=== PATIENT | male | born 1945 | race Caucasian/White ===

== ENCOUNTER → 2024-01-02 07:41 | Outpatient (REF) | payer MEDICARE, OTHER, SELFPAY | LOC: EMG 07:41 | PROVIDERS: ATTENDING PHYSICIAN Internal Medicine | DX: R20.0 Anesthesia of skin (principal) | CPT/HCPCS: 95886; 95911 ==

== ENCOUNTER → 2024-01-07 08:46 | Outpatient (REF) | payer MEDICARE, OTHER, SELFPAY | LOC: PAVMRI 08:46 | PROVIDERS: ATTENDING PHYSICIAN Internal Medicine; OTHER PHYSICIAN Psychiatry & Neurology Neurology | DX: G25.81 Restless legs syndrome (principal); R20.0 Anesthesia of skin | CPT/HCPCS: 72148 ==

== ENCOUNTER 2024-02-07 02:11 | Observation (INO) | payer MEDICARE, OTHER, SELFPAY ==
[2024-02-06 22:52] VITALS: BP 147/78
[2024-02-06 22:58] VITALS: BMI 27.1
[2024-02-06 23:00] VITALS: BP 129/71
[2024-02-06 23:02] LABS: % Basophils 0.8 % (0-2); % Eosinophils 3.1 % (0-6); % Immature Granulocytes 0.2 % (0-0.5); % Lymphocytes 17.3 % (20.5-51.1); % Monocytes 8.9 % (1.7-9.3); % Neutrophils 69.7 % (42.2-75.2); Absolute Basophils 0.1 10^3/uL (0-0.2); Absolute Eosinophils 0.2 10^3/uL (0-0.7); Absolute Lymphocytes 1.1 10^3/uL (1.2-3.4); Absolute Monocytes 0.6 10^3/uL (0.1-0.6); Absolute Neutrophils 4.6 10^3/uL (1.4-6.5); Hematocrit 34.7 % (39.0-52.0); Hemoglobin 12.4 g/dL (13.0-18.0); Mean Corp Hgb Conc. 35.7 g/dL (33.0-37.0); Mean Corpuscular Hgb 30.5 pg (27.0-31.0); Mean Corpuscular Volume 85.3 fL (80.0-94.0); Mean Platelet Volume 10.3 fL (7.4-10.4); Nucleated Red Blood Cells % 0 % (-); Platelet Count 142 10^3/uL (130-400); Red Blood Cell Count 4.07 10^6/uL (4.70-6.10); Red Cell Dist. Width 13.1 % (11.5-14.5); White Blood Cell Count 6.6 10^3/uL (4.8-10.8)
[2024-02-06 23:14] LABS: INR 1.09; PT 14.2 Sec (11.4-14.6)
[2024-02-06 23:18] LABS: ALT (SGPT) 41 U/L (0-50); AST (SGOT) 40 U/L (17-59); Albumin 3.8 g/dl (3.5-5.0); Alkaline Phosphatase 80 U/L (38-126); Blood Urea Nitrogen 33 mg/dl (9-20); Calcium 9.4 mg/dl (8.4-10.2); Carbon Dioxide 23 mmol/L (22-30); Chloride 108 mmol/L (98-107); Estimated Creatinine Clearance 54 ml/min; Glucose 122 mg/dl (70-99); Sodium 141 mmol/L (135-145); Total Bilirubin 0.6 mg/dl (0.2-1.3); Total Protein 5.8 g/dl (6.3-8.2); eGFR 56.23
[2024-02-06 23:30] VITALS: BP 129/69
[2024-02-06 23:31] LABS: Troponin I < 0.012 ng/ml
[2024-02-07] VITALS (12 sets, daily range): BP systolic 124–157; BP diastolic 64–84; BMI 26.4; BMI 26.0
--- NOTE | 2024-02-07 00:16 | ED.GENMED ---
History of Present Illness
General
Chief Complaint: Chest Pain
Time Seen by Provider: 02/06/24 23:31
History of Present Illness
History of Present Illness:
Patient is a 70-year-old male with history of CAD with multiple stents and bypasses presenting to the emergency department chest pain. Patient states that he gets chest pain frequently. This episode started at 8:30 PM. It is left-sided that
radiates up neck and down his arm. He was having some shortness of breath. It does feel similar to when he needed his prior stents. He denies any nausea or vomiting. No diaphoresis. He did take 4 baby aspirin as well as 2 nitroglycerin without
relief. No leg swelling hemoptysis travel malignancy. No history of blood clots. He is compliant with all his medications. No numbness tingling
Past History
Past History
ED Past Medical History: CAD, GERD, HTN, Hypercholesterolemia, [place], Psychiatric and Other (Cellulitis)
ED Past Surgical History: Cardiac (Stents X 3, Coronary artery bypass) and Orthopedic
Social History
Tobacco: Former smoker
Alcohol: Occasional
Drug: None
Personal:
Living: with family
Employment: Employed
Family History
Family History: Early CAD
Phy Exam
Physical Exam
Physical Exam:
GENERAL: in no acute distress
HEENT: normocephalic, extraocular movements intact, moist oral mucosa
NECK: normal inspection
RESPIRATORY: no respiratory distress, clear to auscultation bilaterally
CARDIOVASCULAR: regular rate and rhythm, 2+ radial pulses bilaterally
ABDOMEN/: soft, non-distended, non-tender to palpation, no rebound or guarding
EXTREMITIES: non-tender, no edema/swelling
NEUROLOGIC: awake and alert, moves all extremities
SKIN: warm
Scores
Heart Score for Chest Pain Patients
STEMI patient?: No
History: Moderately Suspicious
ECG: Nonspecific Repolarization
Age: >/= 65 years
Risk Factors: >/= 3 Risk Factors or History of CAD
Troponin: </= Normal Limit
Heart Score for Chest Pain Patients: 6
Heart Score Risk: 20.3% MACE over next 6 weeks
Course
Orders/Labs/Results
Orders:
Orders
02/06/24 22:48
EKG [Electrocardiogram (*1)] Urgent
Reason for Study: Chest Pain
EKG- Treatment ONCE
02/06/24 22:55
Complete Blood Count/With Diff Urgent
Comprehensive Metabolic Panel Urgent
Prothrombin Time Urgent
Troponin I Urgent
02/07/24 00:04
CR Chest - 2 Views Urgent
Comment:
Reason For Exam: chest pain
Abnormal Lab Results
02/06/24
22:55
RBC 4.07 L 10^6/uL
(4.70-6.10)
Hgb 12.4 L g/dL
(13.0-18.0)
Hct 34.7 L %
(39.0-52.0)
Absolute Lymphs (auto) 1.1 L 10^3/uL
(1.2-3.4)
Lymphocytes % 17.3 L %
(20.5-51.1)
Chloride 108 H mmol/L
(98-107)
BUN 33 H mg/dl
(9-20)
Glucose 122 H mg/dl
(70-99)
Total Protein 5.8 L g/dl
(6.3-8.2)
02/06/24 22:55
02/06/24 22:55
Vital Signs
Initial and Last Documented VS:
Initial Vital Signs
Temp Pulse Resp BP Pulse Ox
97.7 F 56 18 147/78 97
02/06/24 22:52 02/06/24 22:52 02/06/24 22:52 02/06/24 22:52 02/06/24 22:52
Last Documented Vital Signs
Temp Pulse Resp BP Pulse Ox
97.7 F 54 18 124/64 98
02/06/24 22:52 02/07/24 00:00 02/06/24 22:52 02/07/24 00:00 02/07/24 00:00
MDM/Problems Addressed
Differential Diagnosis Includes:
Patient is a 70-year-old man with history of CAD with multiple stents and bypasses presenting to the emergency department with left-sided chest pain that radiates up to his back and down his arm for the past 4 hours. Vitals here are unremarkable
and exam is reassuring. Initial EKG per my interpretation normal sinus rhythm without any ST elevations. Concern for ACS. History and exam not consistent with PE or dissection. Initial blood work was unremarkable. Delta troponin pending. Will
also obtain chest x-ray. Discussed with hospitalist who the patient to their service. He is followed by [facility].
*Critical Care Note
Total Time (30-74mins, 75-104mins- exclusive of procedures): Not Applicable
ED Attending Note
-
Portions of this chart may have been created with voice recognition software.� Occasional wrong word or��sound alike� substitutions may have occurred due to the inherent limitations of voice recognition software.
Discharge Plan
Departure
Patient Disposition: Admit
Date of Disposition: 02/07/24
Time of Disposition: 00:15
Presentation/result/management discussed w/ accepting MD/DO: Hospitalist
Discharge Problem:
Chest pain
Prescriptions:
No Action
rosuvastatin 20 MG tablet
40 mg PO QPM
ezetimibe [Zetia] 10 MG tablet
10 mg PO QPM
aspirin [Jonathan Chewable Aspirin] 81 MG tablet,chewable
81 mg PO QPM
docosahexaenoic acid-epa 1 CAP capsule
1 cap PO BID
Co Q-10 300 MG capsule
300 mg PO DAILY
carvedilol [Coreg] 3.125 MG tablet
3.125 mg PO BID Qty: 60 0RF
furosemide 20 MG tablet
20 mg PO DAILY Qty: 30 11RF
pramipexole [Mirapex] 1 mg Tablet
1 mg PO TIDPRN PRN (Reason: restless leg)
clopidogrel [Plavix] 75 mg Tablet
75 mg PO QPM
terazosin 1 mg Capsule
1 mg PO HS
pantoprazole 40 mg Tablet,Delayed Release (Dr/Ec)
40 mg PO DAILY
oxybutynin chloride 5 mg tablet
5 mg PO BID
valsartan 160 mg tablet
160 mg PO QPM
Centrum Silver Tablet
1 tab PO DAILY
bupropion HCl 150 mg tablet extended release 24 hr
150 mg PO DAILY
Referrals:
Hipolito Salguero MD [Family Provider] -
Interventions
Interventions:
*Risk Screen - Suicide Last Done: 02/06/24 23:00
*General Assessment Last Done: 02/06/24 23:00
*Neglect/Abuse Screening Last Done: 02/06/24 23:00
Discharge Date and Time
Print Language: TAIWANESE
--- NOTE | 2024-02-07 01:30 | HPS.HSE ---
Family Physician
-
Family Physician: Hipolito Salguero
Chief Complaint
-
Persistent left-sided chest pain and some shortness of breath
History of Present Illness
This is a 72-year-old who has a history of CAD with multiple procedures in the past who presents to the emergency department with persistent left-sided sharp and achy chest pain.
Patient's CAD history is extensive with first CA in 1995 requiring stent placement. Then in 2009 he had a CABG x 3 vessels, ED then had another stent placed and his last stent was placed in 2019. He states has had intermittent episodes of chest
pain since then but not insignificant requiring even ED visits. He reported that the last week he was helping to build a roof and was carrying loads up and down ladders. He reported intermittent episodes of left pain at that time as well as
intermittent episodes of neck pain which he attributed to his physical activity. Today patient woke feeling weaker than usual. He did go to his early appointment and after returning felt better. Then at around 9 PM he had occurrence of left sided
chest pain. No particular exacerbating or relieving factors. He denied any radiation. There was an associated shortness of breath but no nausea or vomiting. No diaphoresis. He denied having any palpitations lightheadedness or dizziness. He did
not feel quite himself so he decided come to the emergency department. Since 9 the pain has been persistent.
On arrival in the ED he was afebrile and hemodynamically stable. Pulse was 51. Saturation was normal on room air. ECG showed sinus bradycardia at 56 4 degree AV block and a Q13 which is unchanged from prior. His initial troponin was negative.
CBC was unremarkable. Chemistries were unremarkable. Chest x-ray shows no acute infiltrates. Patient given any nitroglycerin and aspirin in the ED without any changes in his pain.
Medical History
Past Medical History
Past Medical History: Reports CAD, HTN and Hypercholesterolemia
Additional Past Medical History:
BPH
Past Surgical History: Reports Cardiac (CABG)
Social History
Tobacco: Former Smoker
Alcohol: Occasional
Drug: None
Personal:
Living: With Family
Employment: Retired
Family History
Family History: Not pertinent
Allergies / Home Medications
Allergies reflects when Allergies were last updated in [facility].
Home Medications with original date entered in [facility]
Allergy/Medication List:
Allergies
Allergy/AdvReac Type Severity Reaction Status Date / Time
No Known Allergies Allergy Verified 02/06/24 22:51
Home Medications
rosuvastatin 20 mg tablet 40 mg PO QPM High cholesterol 12/18/10
ezetimibe 10 mg tablet (Zetia) 10 mg PO QPM High cholesterol 01/10/17
aspirin 81 mg chewable tablet (Jonathan Chewable Low Dose Aspirin) 81 mg PO QPM Blood clot prevention/tx 06/26/17
coenzyme Q10 300 mg capsule (Co Q-10) 300 mg PO DAILY Supplement 06/26/17
docosahexaenoic acid (dha)-epa 120 mg-180 mg capsule 1 cap PO BID Supplement 06/26/17
carvedilol 3.125 mg tablet (Coreg) 3.125 mg PO BID #60 tabs 06/28/18
furosemide 20 mg tablet 20 mg PO DAILY Heart Failure #30 tabs 02/24/20
bupropion HCl 150 mg 24 hr tablet, extended release 150 mg PO DAILY 02/06/24
clopidogrel 75 mg tablet (Plavix) 75 mg PO QPM 02/06/24
kijxpuayjbxd-kcxivszp-vrmyva tablet 1 tab PO DAILY 02/06/24
oxybutynin chloride 5 mg tablet 5 mg PO BID 02/06/24
pantoprazole 40 mg tablet,delayed release 40 mg PO DAILY 02/06/24
pramipexole 1 mg tablet 1 mg PO TIDPRN PRN restless leg 02/06/24
terazosin 1 mg capsule 1 mg PO HS 02/06/24
valsartan 160 mg tablet 160 mg PO QPM 02/06/24
Review of Systems
-
History Source: Patient
Constitutional: Reports No Symptoms
EENT: Reports No Symptoms
Respiratory: Reports No Symptoms
Cardiac: Reports Chest Pain
Abdomen/GI: Reports No Symptoms
: Reports No Symptoms
Musculoskeletal: Reports No Symptoms
Skin: Reports No Symptoms
Neurological: Reports No Symptoms
Endocrine: Reports No Symptoms
Hematologic/Lymphatic: Reports No Symptoms
Psych: Reports No Symptoms
Physical Exam
Vital Signs
Vital Signs
Temp Pulse Resp BP Pulse Ox
97.7 F 51 16 131/70 93
02/06/24 22:52 02/07/24 01:00 02/07/24 01:00 02/07/24 01:00 02/07/24 01:00
Physical Exam
General: Well Developed, Well Nourished and Comfortable
HEENT: NormoCephalic, Anicteric, Moist mucous membranes and Atraumatic
Respiratory: Clear and Other (chest pain reproducible with palpation over the left edge of the sternum )
Cardiac: S1/S2 and Bradycardia
Breast: Deferred by me
GI: Soft, Non Tender, Non Distended and Normal Bowel Sounds
Rectal: Deferred by Provider
Genito-urinary: Deferred by me
Musculoskeletal: No Clubbing, No Cyanosis, Edema, Left Lower Extremity (trace) and Edema, Right Lower Extremity (trace)
Skin: Warm
Neuro: AO x 3
Hematologic/Lymphatic: No Lymphadenopathy
Psych: Calm
Laboratory Results
-
02/06/24 22:55
02/06/24 22:55
Laboratory Results
PT 14.2 Sec (11.4-14.6) 02/06/24 22:55
INR 1.09 02/06/24 22:55
Total Bilirubin 0.6 mg/dl (0.2-1.3) 02/06/24 22:55
AST 40 U/L (17-59) 02/06/24 22:55
ALT 41 U/L (0-50) 02/06/24 22:55
Alkaline Phosphatase 80 U/L (38-126) 02/06/24 22:55
Troponin I < 0.012 ng/ml 02/06/24 22:55
Data Reviewed
-
Diagnostic Radiology: Image Personally Visualized and interpreted
Medical Tests (Nuc Med, Echo, EKG etc): Image Personally Visualized and interpreted
Lab Data: Labs Reviewed by me
Old Records: Reviewed
Impression/Plan
-
IMPRESSION:
This is 78-year-old with extensive coronary artery disease status post CABG and multiple PCI's with last PCI in 2019 currently on aspirin and Plavix presenting to the ED with persistent left-sided chest pain.
PLAN:
Chest pain -somewhat atypical chest pain that is reproducible with palpation over the left sternal however there is associated shortness of breath. His initial ECG was nonischemic. Initial troponin was negative. These labs are unremarkable.
Chest x-ray was clear. Received nitroglycerin and aspirin in the ED without any significant changes in pain. History of GERD and denies nausea vomiting.
- admit to telemetry
- cycle cardiac enzymes
- if repeat cardiac enzyme is negative and chest pain still present, will give analgesics and famotidine.
- continue aspirin, plavix statin
- if cp is persistent despite analgesics and negative troponin consult cardiology
HTN - stable
- continue carvedilol and valsartan
- furosemide 20 daily
DVT PPX - lovenox sq
Code status - full code
[2024-02-07 02:26] LABS: Troponin I < 0.012 ng/ml
[2024-02-07] MEDS: PEPCID 20 MG IV (03:26)
[2024-02-07] MEDS: MAALOX 30 ML PO (03:28)
--- NOTE | 2024-02-07 03:57 | PTCARENOTE ---
Received pt from ED via stretcher. Pt ambulated to bed without assist, AAOx3, VSS, pain has decreased in severity (now rated 3/10). Oriented to floor, call levy within reach
[2024-02-07 06:11] LABS: Troponin I < 0.012 ng/ml
[2024-02-07] MEDS: WELLBUTRIN XL (24 hour extended release) 150 MG PO (08:53)
[2024-02-07] MEDS: COREG 3.125 MG PO ×2 (08:53→21:45)
[2024-02-07] MEDS: DITROPAN 5 MG PO ×2 (08:53→21:45)
[2024-02-07] MEDS: PROTONIX 40 MG PO (08:53)
[2024-02-07] MEDS: LASIX 20 MG PO (08:53)
--- NOTE | 2024-02-07 08:59 | W.PN.HOSP.TC ---
Addendum entered and electronically signed by Brent Swift MD 02/07/24 10:26:
I saw and evaluated the patient. I reviewed the resident�s note and agree with findings and plan as documented in the resident�s note.
Denies chest pain at rest. Reports chest pain throughout his chest with movement. States it feels like 'it is in my ribs.' Also reports that in certain positions he feels short of breath.
Gen: NAD, AAOx3.
Eyes: EOMI, PERRLA, no scleral icterus.
Neck: supple.
CV: RRR, +S1/S2, no m/r/g.
Resp: CTAB, no rales, wheezes, or rhonchi.
Abd: +BS, soft, NT, ND
Skin: No rashes.
MSK: Chest pain is reproducible when pressure is applied to the left chest, most notably in the lower lateral left chest.
Neuro: CN 2-12 intact, non-focal.
Psych: Normal mood and affect.
Chest pain:
-Patient with underlying CAD (coronary stents and CABG)
-trops NEG
-telemetry (reviewed by me) without concerning rhythms, currently SB at rest
-non-ischemic ECG
-Physical exam consistent with noncardiac/musculoskeletal chest pain. That being said, with underlying coronary artery disease and admission for chest pain cardiology will need to see in consultation.
Original Note:
Today's Communication/Plan
-
anticipate discharge home today if ambulating halls well without chest pain and no oxygen requirement
Assessment / Plan
Assessment / Plan
72yo M with PMH CAD s/p multiple cardiac catheterizations/stents, who presented to ED 02/05 for chest pain, pressure, shortness of breath.
Atypical chest pain vs noncardiac chest pain
CAD s/p multiple cardiac catheterizations/stents
- EKG stable, no acute infarct or ischemia. Troponin negative x3
- Pain unrelieved by nitroglycerine, rest
- Pain reproducible on physical exam, tender to palpation
- Pain/pressure resolving though still present slightly
- Suspect noncardiac chest pain, likely musculoskeletal pain triggered by active lifestyle including building roof last week and carrying tables up/down stairs few days ago
- Will consult cardiology for evaluation
- Continue home plavix, aspirin
- Telemetry while inpatient
HTN
- Continue home carvedilol, valsartan, furosemide
- Continue to monitor vital signs, reassess antihypertensives prn
Sinus bradycardia
1st degree AV block
- Asymptomatic
- Continue to monitor clinically
- Telemetry while inpatient
HLD- continue home ezetimibe, rosuvastatin
Depression- stable, continue home bupropion
RLS- continue home pramipexole
GERD- continue home pantoprazole
Code status: full
VTE ppx: lovenox sc pm
Diet: cholesterol lowering
Dispo planning: anticipate home
Anticipated Discharge: Today
Subjective/Interval History
-
Date of Service: February 07, 2024
No acute events overnight. Prior to admission while watching TV at home, he felt chest pressure and shortness of breath, which did not resolve with rest, 2 nitroglycerine and aspirin. It was associated with exhaustion, neck pain, L arm pain. Prior
to admission his chest was nontender, which he checks given his active lifestyle and his suspicion for MSK pain. This morning his chest pain is 'much less' and he 'barely feels the pressure' today. He also notes that the pain is now reproducible
when he presses in certain areas on his chest. Today he denies headache, lightheadedness, dizziness, chest pain, shortness of breath, palpitations, nausea, vomiting, diarrhea, constipation.
Objective Data
-
Labs:
Laboratory Results
02/06/24
22:55
WBC 6.6
Hgb 12.4 L
Hct 34.7 L
Plt Count 142
PT 14.2
INR 1.09
Sodium 141
Potassium 4.0
Chloride 108 H
Carbon Dioxide 23
BUN 33 H
Creatinine 1.3
Glucose 122 H
Calcium 9.4
Total Bilirubin 0.6
AST 40
ALT 41
Alkaline Phosphatase 80
Vital Signs:
Vital Signs
Temp Pulse Resp BP Pulse Ox
98.0 F 47 18 143/77 96
02/07/24 03:02 02/07/24 08:53 02/07/24 03:02 02/07/24 08:53 02/07/24 03:02
I&O
02/06/24 02/07/24 02/08/24
06:59 06:59 06:59
Intake Total 480 / 480
Balance 480 / 480
Review of Systems
-
History Source: Patient
All other systems: Reviewed and negative
Physical Exam
-
General: Well Developed, Well Nourished, No Apparent Distress, Comfortable and Conversant
HEENT: Normocephalic, Atraumatic and Hearing Impaired (hearing aids charging at bedside)
Respiratory: Clear to Auscultation and Non Labored Respirations
Cardiac: Regular Rhythm and S1/S2
GI: Soft, Nontender, Nondistended and Normal Bowel Sounds
Musculoskeletal: No Cyanosis and No Edema
Skin: Warm and Dry
Neuro: Awake, Alert, Oriented, AO x 3 and Nonfocal/Grossly Intact
Psych: Calm and Intact Judgement/Insight
Data Reviewed
-
Diagnostic Radiology: Image personally visualized and interpreted, Report Reviewed by me and Discussed with Physician
Labs: Labs Reviewed by me, Discussed with Physician and Discussed with Patient
[2024-02-07 09:05] LABS: Glycohemoglobin (HgbA1c) 5.9 % (4.0-5.6)
[2024-02-07] MEDS: MIRAPEX, GENERIC 1 MG PO ×2 (11:29→21:53)
--- NOTE | 2024-02-07 16:16 | CON.CAR ---
Addendum entered and electronically signed by Andry Piper MD 02/07/24 17:37:
Pleasant 78-year-old male with CABG x 3 in 2009, OM 3 PCI in 2010, PTCA to distal circumflex and OM 4 in 2016 with most recent PCI to OM 3 in February 2020 in the setting of interruption of DAPT for focused ultrasound ablation for essential tremor.
Admitted late February 05 with chest and neck discomfort. He has a long history of chest pain which is often noncardiac in nature. Now feels better, troponin has been negative. 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
a building last week.
PMH: As above, in addition, hypertension, hyperlipidemia, PVD, GERD, BPH, degenerative disc disease, restless legs, PAD, essential tremor
SH: Former smoker, rare alcohol, , retired but very active
FH: Noncontributory
PSH: CABG and PCI as above
ROS: Negative except as above
148/72, pulse 56, respiratory 18, afebrile, head neck exam unremarkable, lungs are clear, regular rate and rhythm without obvious murmurs JVD carotids are okay, abdomen is benign extremities without clubbing cyanosis or edema distal pulses are still
palpable, neuro nonfocal
ECG: Sinus bradycardia, first-degree AV block, prior septal infarct
Chest x-ray no active disease
Hemoglobin 12.4 platelets 142, BUN and creatinine 33 and 1.3, potassium 4, troponin is undetectable
Plan:
He presents with chest discomfort but negative troponins. It has been roughly 2 years since his last sestamibi study. Would favor continued observation today and discharge in the morning with an outpatient exercise sestamibi study.
He is mildly hypertensive but blood pressure has been good at home. For the present we will not alter his regimen. I have been considering discontinuation of carvedilol as an outpatient given bradycardia but will continue for now.
Original Note:
Consultation
Consultation Request
Date/Time Consultation Performed: 02/07/24
Requesting Provider: Dr. Swift
Performing Provider: Loyda Coyle PA-C for Dr. MIRNA Piper
Reason for Consultation: CP
Medical History
-
Chief Complaint: CP
History of Present Illness:
Patient is a 78-year-old male with past medical history of CAD status post CABG x 3 in 2009, OM 3 PCI 12/2010, POBA to dLCx/OM2016, OM3 PCI 02/2020, history of recovered ischemic cardiomyopathy, hypertension, hyperlipidemia, peripheral vascular
disease, GERD, BPH, restless leg syndrome, cervical DDD who presented to [facility] via EMS for evaluation of chest discomfort. He reports last week he was building a new roof for the front of his house. He reports around 9 PM last
evening he was watching TV and noticed significant chest discomfort throughout his chest. He states he does get chest pain from time to time, however this is mostly lower in his left chest. He also reports over the last several days he noted pain
in his left arm on and off (of note, he is left handed), and then developed some neck discomfort. Last evening he also had some shortness of breath. He took aspirin as well as sublingual nitro x 2 without relief. On arrival to the emergency room
he had serial troponins which were negative. EKG without acute ischemic change. Chest x-ray with no active process. Cardiology consulted for evaluation. He did not note any limitation in activity or chest discomfort with building the roof last
week and states he is very active.
PMH:
CAD
CABG x 3 in 2009 REED to LAD, sequential SVG to OM1, RPDA
OM 3 PCI 12/2010
POBA to distal left circumflex/OM 08/2016
OM 3 PCI 02/2020
History of recovered ischemic cardiomyopathy
Hypertension
Hyperlipidemia
Peripheral vascular disease
GERD
BPH
Restless leg syndrome
Cervical degenerative disc disease
History of essential tremor of left upper extremity status post focused ultrasound ablation 01/2020
Past Medical History
Past Medical History: Other (in HPI)
Social History
Tobacco: Former Smoker
Alcohol: Occasional
Personal:
Living: With Family
Employment: Retired
Family History
Family History: CAD (in father)
Allergies / Home Medications
Allergy/AdvReac Type Severity Reaction Status Date / Time
No Known Allergies Allergy Verified 02/06/24 22:51
�Medication �Instructions �Recorded �Confirmed �Type
rosuvastatin 20 mg tablet 40 mg PO QPM High cholesterol 12/18/10 02/06/24 History
ezetimibe 10 mg tablet (Zetia) 10 mg PO QPM High cholesterol 01/10/17 02/06/24 History
aspirin 81 mg chewable tablet 81 mg PO QPM Blood clot 06/26/17 02/06/24 History
(Jonathan Chewable Low Dose Aspirin) prevention/tx
coenzyme Q10 300 mg capsule (Co 300 mg PO DAILY Supplement 06/26/17 02/06/24 History
Q-10)
docosahexaenoic acid (dha)-epa 120 1 cap PO BID Supplement 06/26/17 02/06/24 History
mg-180 mg capsule
carvedilol 3.125 mg tablet (Coreg) 3.125 mg PO BID #60 tabs 06/28/18 02/06/24 Rx
furosemide 20 mg tablet 20 mg PO DAILY Heart Failure #30 02/24/20 02/06/24 Rx
tabs
bupropion HCl 150 mg 24 hr tablet, 150 mg PO DAILY 02/06/24 02/06/24 History
extended release
clopidogrel 75 mg tablet (Plavix) 75 mg PO QPM 02/06/24 02/06/24 History
ikpbgukphnnj-lagsatbr-tujknc tablet 1 tab PO DAILY 02/06/24 02/06/24 History
oxybutynin chloride 5 mg tablet 5 mg PO BID 02/06/24 02/06/24 History
pantoprazole 40 mg tablet,delayed 40 mg PO DAILY 02/06/24 02/06/24 History
release
pramipexole 1 mg tablet 1 mg PO TIDPRN PRN restless leg 02/06/24 02/06/24 History
terazosin 1 mg capsule 1 mg PO HS 02/06/24 02/06/24 History
valsartan 160 mg tablet 160 mg PO QPM 02/06/24 02/06/24 History
Review of Systems
-
History Source: Patient
All other systems: Negative unless noted
Physical Exam
Vital Signs
Temp Pulse Resp BP Pulse Ox
97.3 F 56 18 148/72 98
02/07/24 15:00 02/07/24 15:00 02/07/24 15:00 02/07/24 15:00 02/07/24 15:00
Lab Results
02/06/24 22:55
02/06/24 22:55
Troponin I < 0.012 ng/ml 02/07/24 05:10
Physical Exam
General: No Apparent Distress and Comfortable
HEENT: Normocephalic, Anicteric and Moist Mucous Membranes
Respiratory: Clear and Non Labored Respirations
Cardiac: S1/S2 and Regular Rhythm
GI: Soft, Non Tender, Non Distended and Normal Bowel Sounds
Musculoskeletal: No Clubbing, No Cyanosis and No Edema
Skin: Warm and Dry
Neuro: AO x 3
Impression / Plan
-
Primary Protective Signal Repairer Helper: Dr. MIRNA Piper
Assessment:
Presentation with CP
Serially negative troponins
CAD
CABG x 3 in 2009 REED to LAD, sequential SVG to OM1, RPDA
OM 3 PCI 12/2010
POBA to distal left circumflex/OM 08/2016
OM 3 PCI 02/2020
History of recovered ischemic cardiomyopathy
Hypertension
Hyperlipidemia
Peripheral vascular disease
GERD
BPH
Restless leg syndrome
Cervical degenerative disc disease
History of essential tremor of left upper extremity status post focused ultrasound ablation 01/2020
Lexiscan nuclear stress test 12/21/2021: Fixed defect in apical septal and apex segments consistent with infarction, EF 52%, no significant change compared to prior study. No obvious significant active coronary disease.
ECHO 01/11/23: EF 63%, mid to distal septum hypokinetic, mild concentric LVH, discrete upper septal thickening, trace TR, PAP 15 to 20 mmHg
Plan:
-Patient presents for evaluation of chest discomfort
-Pain appears atypical for cardiac etiology. Seems most consistent with musculoskeletal cause as was reproducible on my exam
-EKGs sinus rhythm without acute ischemic changes
-Troponins serially negative
-Chest x-ray without active disease
-He remains in sinus rhythm on review of telemetry overnight. Appears he may have a rate related bundle, however unlikely related to his chest discomfort
-Last echo and stress test as above
-could consider addition of low-dose Norvasc given hypertension and CAD history. Continue Coreg, valsartan, aspirin, Plavix, Crestor. Patient reports compliance with medications at home
-Will arrange outpatient cardiac follow-up and can consider repeat ischemic assessment at that point
Data Reviewed
-
EKG: Tracing Personally Visualized and interpreted
Radiology: Report Reviewed by me
Medical Tests (Nuc Med, Echo etc): Report Reviewed by me
Labs: Labs Reviewed by me
Old Records: Reviewed
[2024-02-07] MEDS: LOVENOX 40 MG SC (17:38)
[2024-02-07] MEDS: PLAVIX 75 MG PO (17:38)
[2024-02-07] MEDS: DIOVAN 160 MG PO (17:38)
[2024-02-07] MEDS: CRESTOR 40 MG PO (17:38)
[2024-02-07] MEDS: ZETIA 10 MG PO (17:38)
[2024-02-07] MEDS: LOW STRENGTH ASPIRIN 81 MG PO (17:38)
[2024-02-08 05:53] VITALS: BP 147/73
[2024-02-08 07:45] VITALS: BP 157/78
--- NOTE | 2024-02-08 08:51 | W.PN.HOSP.TC ---
Addendum entered and electronically signed by Keron David MD 02/08/24 14:34:
I personally performed a history and physical exam of the patient and discussed management with the resident. I reviewed the resident's note and agree with the documented findings and plan of care HPI/CC.
Admitted with chest pain after he was doing some work on his roof. Pain started immediately after that. Patient states that he has no pain today.
Had tenderness to palpation yesterday but none today.
Examination cardiovascular system S1-S2 appreciated
Chest clear to auscultation
Abdomen soft nontender
No calf tenderness
No pedal edema
Chest pain-likely musculoskeletal in nature
Patient was seen by cardiology. Troponins are negative. EKG without any acute changes
Plan is for outpatient stress test
Continue aspirin and Plavix, Coreg, valsartan and Lasix
Continue PPI
Stable for discharge
Original Note:
Today's Communication/Plan
-
discharge home today
Assessment / Plan
Assessment / Plan
72yo M with PMH CAD s/p multiple cardiac catheterizations/stents, who presented to ED 02/05 for chest pain, pressure, shortness of breath.
Atypical chest pain vs noncardiac chest pain
CAD s/p multiple cardiac catheterizations/stents
- EKG stable, no acute infarct or ischemia. Troponin negative x3
- Pain unrelieved by nitroglycerine, rest
- Pain reproducible on physical exam, tender to palpation 02/06
- Pain/pressure completely resolved today
- Suspect noncardiac chest pain, likely musculoskeletal pain triggered by active lifestyle including building roof last week and carrying tables up/down stairs few days ago
- S/p cardiology consult, appreciate recs.
- Continue home plavix, aspirin
- Stable for discharge this morning. Will need follow up with cardiology and outpatient exercise sestamibi study.
HTN
- Continue home carvedilol, valsartan, furosemide
- Continue to monitor vital signs, reassess antihypertensives prn
Sinus bradycardia
1st degree AV block
- Asymptomatic
- Continue to monitor clinically
- Telemetry while inpatient
HLD- continue home ezetimibe, rosuvastatin
Depression- stable, continue home bupropion
RLS- continue home pramipexole
GERD- continue home pantoprazole
Code status: full
VTE ppx: lovenox sc pm
Diet: cholesterol lowering
Dispo planning: home today
Anticipated Discharge: Today
Subjective/Interval History
-
Date of Service: February 08, 2024
No acute events overnight. He feels well and desires discharge today. He denies lightheadedness, dizziness, chest pain or pressure, shortness of breath, nausea, vomiting, diarrhea, constipation. Tolerating PO diet. Ambulating well independently.
Objective Data
-
Vital Signs:
Vital Signs
Temp Pulse Resp BP Pulse Ox
97.6 F 50 16 157/78 97
02/08/24 07:45 02/08/24 07:45 02/08/24 07:45 02/08/24 07:45 02/08/24 07:45
I&O
02/07/24 02/08/24 02/09/24
06:59 06:59 06:59
Intake Total 480 / 480 1320 / 1320
Balance 480 / 480 1320 / 1320
Review of Systems
-
History Source: Patient
All other systems: Reviewed and negative
Physical Exam
-
General: Well Developed, Well Nourished, No Apparent Distress, Comfortable, Conversant and Other (ambulating room conversing with neighbor)
HEENT: Normocephalic, Atraumatic and Hearing Impaired (+hearing aids)
Respiratory: Non Labored Respirations
Cardiac: Regular Rhythm
GI: Soft, Nontender, Nondistended and Normal Bowel Sounds
Musculoskeletal: No Cyanosis, No Edema and Normal Gait & Station
Skin: Warm and Dry
Neuro: Awake, Alert, Oriented and Nonfocal/Grossly Intact
Psych: Calm and Intact Judgement/Insight
Data Reviewed
-
Diagnostic Radiology: Image personally visualized and interpreted, Report Reviewed by me and Discussed with Physician
Labs: Labs Reviewed by me and Discussed with Physician
[2024-02-08] MEDS: WELLBUTRIN XL (24 hour extended release) 150 MG PO (08:59)
[2024-02-08] MEDS: PROTONIX 40 MG PO (08:59)
[2024-02-08] MEDS: DITROPAN 5 MG PO (08:59)
[2024-02-08] MEDS: LASIX 20 MG PO (08:59)
[2024-02-08] MEDS: COREG 3.125 MG PO (08:59)
--- NOTE | 2024-02-08 10:35 | CM ---
Patient seen bedside, initial assessment completed. Patient resides with his and son in a multiple story home, master bedroom on first floor, two steps to enter home. Patient denies DME, VN, or SNF history. Patient PCP Hipolito Salguero, pharmacy [facility], confirms prescription coverage. Patient reports he is hopeful for discharge, has transportation home. DESAI reviewed, signed, placed in chart, provided with copy. CM will continue to follow for all discharge planning needs.
Plan; home no needs anticipated.
[2024-02-08 11:03] VITALS: BP 140/63
[2024-02-08] MEDS: MIRAPEX, GENERIC 1 MG PO (12:29)
[2024-02-08 13:47] VITALS: BP 152/73
--- NOTE | 2024-02-08 15:17 | W.DCSUMMARY ---
Discharge Summary
Discharge Data
Date of Admission: 02/06/24
Date of Discharge: 02/08/24
-
Pending Results: No
Hospital Course
Discharging Physician : Dr. Ponce, Dr. David
Disposition : Home
Primary care physician : Hipolito Salguero
Principal Discharge diagnosis : Noncardiac chest pain
Chronic Discharge diagnosis : Coronary artery disease s/p multiple cardiac catheterizations and stets, hypertension, sinus bradycardia, 1st degree AV block, hyperlipidemia, depression, restless leg syndrome, GERD
Hospital Course : Presented to ED for chest pain/discomfort and shortness of breath. His cardiac workup was negative for ACS: troponin negative x3, EKG nonischemic, unrelieved by nitroglycerine or rest. Suspect musculoskeletal pain as it was
reproducible on physical exam with palpation and resolved spontaneously. Cardiology was consulted. On day of discharge, he was stable. He has outpatient follow up scheduled with cardiology as well as an outpatient exercise sestamibi study.
Important imaging findings :
Chest xray 02/06
FINDINGS:
Lines/Tubes/Devices: None
Lungs/Pleura: Low lung volumes with bronchovascular crowding. No consolidation, pleural effusion, or pneumothorax.
Mediastinum/Heart: Stable cardiomediastinal silhouette with post CABG changes.
Bones: No suspect osseous lesion.
IMPRESSION:
No active pulmonary process.
Procedure findings : N/A
Discharge Plan
-
Patient Disposition: Home (Routine Discharge)
Discharge Diagnosis/Procedures: chest discomfort atypical for cardiac etiology
Condition: Good
Diet: Low Cholesterol
Activity: As tolerated
Driving Restrictions: As prior to admission
Bathing Restrictions: None
Activity Restrictions/Additional Instructions:
You have been arranged for a stress test at the [facility] in [place] 02/28/2024 at 8:20 AM. Please call the cardiology office with questions.
Instructions: Chest pain - Discharge instructions, BLOOD PRESSURE
Referrals:
Hipoilto Salguero MD [Family Provider] - in less than 1 week (Please call your Primary Care Provider to schedule an appointment within 1 week of hospital discharge.)
Lawanda Jordan CRNP [Specified Professional Personl] - 03/03/24 1:20 pm
(You have a cardiology follow-up appointment at the [place] office with Dr. Piper's nurse practitioner, Lawanda. This is scheduled for 03/03/24 at 1:20pm. Please call with questions
You have also been arranged for a stress test at the [facility] in [place] 02/28/2024 at 8:20 AM. Please call the cardiology office with questions. )
Prescriptions:
Continued
rosuvastatin 20 MG tablet
40 mg PO QPM
ezetimibe [Zetia] 10 MG tablet
10 mg PO QPM
aspirin [Jonathan Chewable Aspirin] 81 MG tablet,chewable
81 mg PO QPM
docosahexaenoic acid-epa 1 CAP capsule
1 cap PO BID
Co Q-10 300 MG capsule
300 mg PO DAILY
carvedilol [Coreg] 3.125 MG tablet
3.125 mg PO BID Qty: 60 0RF
furosemide 20 MG tablet
20 mg PO DAILY Qty: 30 11RF
pramipexole 1 mg Tablet
1 mg PO TIDPRN PRN (Reason: restless leg)
clopidogrel [Plavix] 75 mg Tablet
75 mg PO QPM
terazosin 1 mg Capsule
1 mg PO HS
pantoprazole 40 mg Tablet,Delayed Release (Dr/Ec)
40 mg PO DAILY
oxybutynin chloride 5 mg tablet
5 mg PO BID
valsartan 160 mg tablet
160 mg PO QPM
wlcuqvniebsm-hyolxslr-mfpvbn Tablet
1 tab PO DAILY
bupropion HCl 150 mg tablet extended release 24 hr
150 mg PO DAILY
Discharge Orders:
Discharge Patient (As Directed); Ordered 02/08/24
Ordered By: Inés Ponce
Discharge Date and Time
Print Language: DJIBOUTIAN
== END 2024-02-08 15:28 | disposition home or self-care (01) ==
LOC: 4 EAST ACU 02:11
PROVIDERS: Emergency Medicine; Student in an Organized Health Care Education/Training Program; ADMITTING PHYSICIAN Internal Medicine; ATTENDING PHYSICIAN Hospitalist; CONSULT PHYSICIAN Internal Medicine Cardiovascular Disease; EMERGENCY PHYSICIAN Student in an Organized Health Care Education/Training Program; FAMILY PHYSICIAN Internal Medicine
DX: R07.89 Other chest pain (principal); I25.10 Atherosclerotic heart disease of native coronary artery without angina pectoris; K21.9 Gastro-esophageal reflux disease without esophagitis; E78.00 Pure hypercholesterolemia, unspecified; I10 Essential (primary) hypertension; I25.2 Old myocardial infarction; R00.1 Bradycardia, unspecified; N40.0 Benign prostatic hyperplasia without lower urinary tract symptoms; I73.9 Peripheral vascular disease, unspecified; G25.81 Restless legs syndrome; G25.0 Essential tremor; I44.0 Atrioventricular block, first degree; M79.602 Pain in left arm; F32.A Depression, unspecified; R06.02 Shortness of breath; Z87.891 Personal history of nicotine dependence; Z82.49 Family history of ischemic heart disease and other diseases of the circulatory system; Z79.82 Long term (current) use of aspirin; Z79.02 Long term (current) use of antithrombotics/antiplatelets; Z95.1 Presence of aortocoronary bypass graft; Z95.5 Presence of coronary angioplasty implant and graft
CPT/HCPCS: 71046; 80053; 83036; 84484; 85025; 85610; 93005; 99285; G0378

== ENCOUNTER → 2024-02-28 08:16 | Outpatient (REF) | payer MEDICARE, OTHER, SELFPAY | LOC: DHCBC/DCA 08:16 | PROVIDERS: ATTENDING PHYSICIAN Internal Medicine Cardiovascular Disease; FAMILY PHYSICIAN Internal Medicine | DX: I25.10 Atherosclerotic heart disease of native coronary artery without angina pectoris (principal); I25.5 Ischemic cardiomyopathy; Z95.1 Presence of aortocoronary bypass graft; R07.9 Chest pain, unspecified | CPT/HCPCS: 78452; 93017; A9500; J2785 ==

== ENCOUNTER → 2024-03-03 07:15 | Outpatient (REF) | payer MEDICARE, OTHER, SELFPAY ==
[2024-03-03 09:29] LABS: % Basophils 0.8 % (0-2); % Eosinophils 3.8 % (0-6); % Immature Granulocytes 0.2 % (0-0.5); % Monocytes 9.5 % (1.7-9.3); % Neutrophils 70.7 % (42.2-75.2); Absolute Basophils 0.1 10^3/uL (0-0.2); Absolute Eosinophils 0.2 10^3/uL (0-0.7); Absolute Lymphocytes 0.9 10^3/uL (1.2-3.4); Absolute Monocytes 0.6 10^3/uL (0.1-0.6); Absolute Neutrophils 4.3 10^3/uL (1.4-6.5); Hematocrit 38.4 % (39.0-52.0); Hemoglobin 13.4 g/dL (13.0-18.0); Mean Corp Hgb Conc. 34.9 g/dL (33.0-37.0); Mean Corpuscular Hgb 30.2 pg (27.0-31.0); Mean Corpuscular Volume 86.7 fL (80.0-94.0); Mean Platelet Volume 10.9 fL (7.4-10.4); Nucleated Red Blood Cells % 0 % (-); Platelet Count 155 10^3/uL (130-400); Red Blood Cell Count 4.43 10^6/uL (4.70-6.10); White Blood Cell Count 6.1 10^3/uL (4.8-10.8)
[2024-03-03 09:49] LABS: ALT (SGPT) 30 U/L (0-50); AST (SGOT) 33 U/L (17-59); Albumin 4.1 g/dl (3.5-5.0); Alkaline Phosphatase 78 U/L (38-126); Blood Urea Nitrogen 31 mg/dl (9-20); Calcium 9.6 mg/dl (8.4-10.2); Carbon Dioxide 27 mmol/L (22-30); Chloride 105 mmol/L (98-107); Glucose 117 mg/dl (70-99); HDL Cholesterol 50 mg/dl; LDL Cholesterol, Calculated 46 mg/dl; Potassium 4.3 mmol/L (3.5-5.1); Sodium 140 mmol/L (135-145); Total Bilirubin 0.7 mg/dl (0.2-1.3); Total Cholesterol 124 mg/dl (50-199); Total Protein 6.2 g/dl (6.3-8.2); Triglyceride 144 mg/dl (10-149); Very Low Density Lipoprotein 28 mg/dl (0-30); eGFR 56.23
[2024-03-03 10:02] LABS: Free T4 0.68 ng/dl (0.78-2.19)
[2024-03-03 10:15] LABS: PSA, Total - Diagnostic 0.68 ng/ml (0.0-4.0); TSH 1.75 uIU/ml (0.47-4.68)
[2024-03-03 10:22] LABS: Microalbumin, Random Urine 9.1 mg/dl (0.6-1.7); Microalbumin/creatinine Ratio 72.6 mg/g
== END ==
LOC: HWLAB 07:15
PROVIDERS: ATTENDING PHYSICIAN Internal Medicine
DX: I11.0 Hypertensive heart disease with heart failure (principal); I50.30 Unspecified diastolic (congestive) heart failure; R73.9 Hyperglycemia, unspecified; N40.0 Benign prostatic hyperplasia without lower urinary tract symptoms
CPT/HCPCS: 36415; 80053; 80061; 82043; 82570; 84153; 84439; 84443; 85025

== ENCOUNTER → 2024-04-15 10:27 | Outpatient (REF) | payer MEDICARE, OTHER, SELFPAY ==
[2024-04-15 13:24] LABS: Glucose 103 mg/dl (70-99)
[2024-04-15 14:08] LABS: Folate > 20.0 ng/ml (2.76-20); Vitamin B12 > 1000 pg/ml (239-931)
[2024-04-15 14:38] LABS: Erythrocyte Sed Rate 7 mm/hour (0-20)
== END ==
LOC: REG 10:27
PROVIDERS: ATTENDING PHYSICIAN Specialist; FAMILY PHYSICIAN Internal Medicine
DX: G25.0 Essential tremor (principal); G60.3 Idiopathic progressive neuropathy; E78.00 Pure hypercholesterolemia, unspecified; E78.5 Hyperlipidemia, unspecified
CPT/HCPCS: 36415; 82607; 82746; 82947; 83036; 84155; 84165; 85652

== ENCOUNTER → 2025-03-03 10:54 | Outpatient (REF) | payer MEDICARE, OTHER, SELFPAY ==
[2025-03-03 12:28] LABS: Hematocrit 42.7 % (39.0-52.0); Hemoglobin 14.2 g/dL (13.0-18.0); Mean Corp Hgb Conc. 33.3 g/dL (33.0-37.0); Mean Corpuscular Volume 91.0 fL (80.0-94.0); Nucleated Red Blood Cells % 0 % (-); Platelet Count 151 10^3/uL (130-400); Red Cell Dist. Width 13.1 % (11.5-14.5)
[2025-03-03 12:33] LABS: Urine Character Clear (Clear)
[2025-03-03 12:52] LABS: ALT (SGPT) 39 U/L (0-50); AST (SGOT) 33 U/L (17-59); Albumin 4.5 g/dl (3.5-5.0); Alkaline Phosphatase 76 U/L (38-126); Blood Urea Nitrogen 43 mg/dl (9-20); Calcium 9.7 mg/dl (8.4-10.2); Carbon Dioxide 29 mmol/L (22-30); Chloride 105 mmol/L (98-107); Glucose 113 mg/dl (70-99); HDL Cholesterol 61 mg/dl; LDL Cholesterol, Calculated 45 mg/dl; Potassium 5.2 mmol/L (3.5-5.1); Sodium 140 mmol/L (135-145); Total Protein 7.2 g/dl (6.3-8.2); Very Low Density Lipoprotein 27 mg/dl (0-30); eGFR 55.88
[2025-03-03 13:20] LABS: PSA, Total - Screen 0.66 ng/ml (0.0-4.0); TSH 1.93 uIU/ml (0.47-4.68)
[2025-03-03 14:01] LABS: Hepatitis C Antibody Negative (Negative)
[2025-03-03 14:22] LABS: Urine Squamous Cell 0-2 /LPF (Few); Urine Urothelial Cell >30 /LPF (FEW)
[2025-03-04 08:32] LABS: Glycohemoglobin (HgbA1c) 6.0 % (4.0-5.6)
== END ==
LOC: HWRAD 10:54
PROVIDERS: ATTENDING PHYSICIAN Internal Medicine
DX: R14.0 Abdominal distension (gaseous) (principal); I10 Essential (primary) hypertension; Z11.59 Encounter for screening for other viral diseases; E11.9 Type 2 diabetes mellitus without complications; Z12.5 Encounter for screening for malignant neoplasm of prostate
CPT/HCPCS: 36415; 74019; 80053; 80061; 81003; 81015; 83036; 84439; 84443; 85025; 86803; G0103

== ENCOUNTER 2025-03-24 02:40 | Emergency (ER) | payer MEDICARE, OTHER, SELFPAY ==
[2025-03-24 02:48] VITALS: BP 132/64
[2025-03-24 03:00] VITALS: BP 118/67
--- NOTE | 2025-03-24 03:01 | ED.GENMED ---
History of Present Illness
General
Chief Complaint: Chest Pain
Source: patient
Time Seen by Provider: 03/24/25 02:45
History of Present Illness
History of Present Illness:
79-year-old male presents emergency room complaining of chest pain. Patient states he was asleep when he was awoken by the need to urinate as well as heartburn. Patient has a significant cardiac history including bypass surgery and stents. He was
concerned that he may be having another heart attack proximal him to call 911. He had no relief with nitro or aspirin. He did get some relief with Tums. He does not feel back to 100% however. 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
a normal evaluation.
Past History
Past History
ED Past Medical History: CAD, GERD, HTN, Hypercholesterolemia, AR, Psychiatric and Other (Cellulitis)
ED Past Surgical History: Cardiac (Stents X 3, Coronary artery bypass) and Orthopedic
Social History
Tobacco: Former smoker
Alcohol: Occasional
Drug: None
Personal:
Living: with family
Employment: Employed
Family History
Family History: Early CAD
Phy Exam
Physical Exam
Physical Exam:
General: Awake, Alert, Oriented X3. No acute distress.
Vitals: unremarkable
Head: Atraumatic
Eyes: Pupils equal, EOMI
Throat: Airway intact, no exudates
Neck: Trachea midline
Lungs: Clear and equal b/l
Heart: Regular rate, no murmurs
Abd: Soft, Nontender, No pulsatile mass
Neuro: Nonfocal
Skin: Warm, dry, no rash
Extremities: pulses equal b/l, no edema
Scores
Heart Score for Chest Pain Patients
STEMI patient?: No
History: Slightly or Non-Suspicious
ECG: Nonspecific Repolarization
Age: >/= 65 years
Risk Factors: >/= 3 Risk Factors or History of CAD
Troponin: </= Normal Limit
Heart Score for Chest Pain Patients: 5
Heart Score Risk: 20.3% MACE over next 6 weeks
Course
Orders/Labs/Results
Orders:
Orders
03/24/25 02:42
Electrocardiogram (*1) Urgent
Reason for Study: Chest Pain
Cardiac Monitoring- Treatment ONCE
EKG- Treatment ONCE
IV Insert/Care/Rem.- Treatment PRN
O2 Therapy [RESP] Urgent
Titrate/Wean O2 to maintain O2 sat greater than (%): 90
Special Instructions: Maintain sats >/=90%
Pulse Ox/spot Check [RESP] Urgent
Quantity: 1
Special Instructions: ON ROOM AIR
03/24/25 02:49
Complete Blood Count/With Diff Urgent
Comprehensive Metabolic Panel Urgent
Troponin I Urgent
03/24/25 03:01
CR Chest - 2 Views Urgent
Comment:
Reason For Exam: chest pain/sob
03/24/25 04:26
Mag Hydrox/Al Hydrox/Simeth [Maalox] 30 ml .ROUTE .STK-MED ONE
Phenobarb/Hyoscy/Atropine/Scop [] 10 ml .ROUTE .STK-MED ONE
Viscous Lidocaine 2% [Xylocaine Viscous Cup] 15 ml .ROUTE .STK-MED ONE
03/24/25 04:36
Mag Hydrox/Al Hydrox/Simeth [Maalox] 30 ml Phenobarb/Hyoscy/Atropine/Scop [] 10 ml Viscous Lidocaine 2% [Xylocaine Viscous Cup] 10 ml PO NOW
03/24/25 05:50
Troponin I Urgent
Abnormal Lab Results
03/24/25
02:49
RBC 4.04 L 10^6/uL
(4.70-6.10)
Hgb 12.2 L g/dL
(13.0-18.0)
Hct 37.2 L %
(39.0-52.0)
MCHC 32.8 L g/dL
(33.0-37.0)
Absolute Lymphs (auto) 1.0 L 10^3/uL
(1.2-3.4)
Lymphocytes % 18.4 L %
(20.5-51.1)
Monocytes % 11.2 H %
(1.7-9.3)
Chloride 111 H mmol/L
(98-107)
BUN 40 H mg/dl
(9-20)
Glucose 104 H mg/dl
(70-99)
Total Protein 5.8 L g/dl
(6.3-8.2)
03/24/25 02:49
03/24/25 02:49
Vital Signs
Initial and Last Documented VS:
Initial Vital Signs
Pulse Resp Pulse Ox
64 18 97
03/24/25 02:43 03/24/25 02:43 03/24/25 02:43
Last Documented Vital Signs
Pulse Resp BP Pulse Ox
61 16 111/66 98
03/24/25 07:45 03/24/25 03:15 03/24/25 07:00 03/24/25 07:45
MDM/Problems Addressed
Differential Diagnosis Includes:
GERD, angina, NSTEMI
MDM/Problems Addressed:
Patient presents with heartburn/chest pain. No acute ischemic changes on EKG. Labs show normal troponin x 2. Patient is comfortable. Stable for discharge home
*Radiology
Radiology exam reviewed: preliminary read by ED provider (No acute abnormality on my review the patient's chest x-ray)
*Pulse Oximetry
SaO2: 98
Oxygen Mode of Delivery: Room air
Patient hypoxic: no
*EKG
Interpreted by ED Provider?: Yes
Heart Rate: 58
Rate: normal
Rhythm: sinus
Interval: first degree heart block
QRS Pattern: right bundle branch block
Ischemia: non-specific ST changes
*Hydrometer Calibrator Interpretation
Rate: bradycardiac
Interpretation: abnormal
Rhythm: sinus
*Critical Care Note
Total Time (30-74mins, 75-104mins- exclusive of procedures): Not Applicable
ED Attending Note
-
Portions of this chart may have been created with voice recognition software.� Occasional wrong word or��sound alike� substitutions may have occurred due to the inherent limitations of voice recognition software.
Discharge Plan
Departure
Patient Disposition: Home (Routine Discharge)
Date of Disposition: 03/24/25
Time of Disposition: 07:43
Patient with high blood pressure during this ER visit?: No
Discharge Problem:
Chest pain
Instructions: Chest Pain DCA Follow Up
Prescriptions:
No Action
rosuvastatin 20 MG tablet
40 mg PO QPM
ezetimibe [Zetia] 10 MG tablet
10 mg PO QPM
aspirin [Jonathan Chewable Aspirin] 81 MG tablet,chewable
81 mg PO QPM
docosahexaenoic acid-epa 1 CAP capsule
1 cap PO BID
Co Q-10 300 MG capsule
300 mg PO DAILY
carvedilol [Coreg] 3.125 MG tablet
3.125 mg PO BID Qty: 60 0RF
furosemide 20 MG tablet
20 mg PO DAILY Qty: 30 11RF
pramipexole 1 mg Tablet
1 mg PO TIDPRN PRN (Reason: restless leg)
clopidogrel [Plavix] 75 mg Tablet
75 mg PO QPM
terazosin 1 mg Capsule
1 mg PO HS
pantoprazole 40 mg Tablet,Delayed Release (Dr/Ec)
40 mg PO DAILY
oxybutynin chloride 5 mg tablet
5 mg PO BID
valsartan 160 mg tablet
160 mg PO QPM
oholwthdktex-wiovisre-wrgyti Tablet
1 tab PO DAILY
bupropion HCl 150 mg tablet extended release 24 hr
150 mg PO DAILY
Referrals:
Hipolito Salguero MD [Family Provider, Internal Medicine]
Interventions
Interventions:
*Risk Screen - Suicide Last Done: 03/24/25 02:43
*General Assessment Last Done: 03/24/25 02:43
*Neglect/Abuse Screening Last Done: 03/24/25 02:43
*ED- Fall Risk Assessment Last Done: 03/24/25 08:45
*ED COVID-19 Vaccine History Last Done: 03/24/25 02:54
*ED Influenza Vaccine History Last Done: 03/24/25 02:54
*Nursing Disposition Last Done: 03/24/25 08:45
ED- Cardiac Assessment Last Done: 03/24/25 02:56
Discharge Date and Time
Discharge Date/Time: 03/24/25 08:55
Print Language: CHINESE
[2025-03-24 03:21] LABS: ALT (SGPT) 37 U/L (0-50); AST (SGOT) 32 U/L (17-59); Albumin 3.6 g/dl (3.5-5.0); Alkaline Phosphatase 70 U/L (38-126); Blood Urea Nitrogen 40 mg/dl (9-20); Calcium 9.5 mg/dl (8.4-10.2); Carbon Dioxide 25 mmol/L (22-30); Chloride 111 mmol/L (98-107); Glucose 104 mg/dl (70-99); Potassium 4.4 mmol/L (3.5-5.1); Sodium 142 mmol/L (135-145); Total Protein 5.8 g/dl (6.3-8.2); eGFR 55.88
[2025-03-24 03:24] LABS: Hematocrit 37.2 % (39.0-52.0); Hemoglobin 12.2 g/dL (13.0-18.0); Mean Corp Hgb Conc. 32.8 g/dL (33.0-37.0); Mean Corpuscular Volume 92.1 fL (80.0-94.0); Nucleated Red Blood Cells % 0 % (-); Platelet Count 139 10^3/uL (130-400); Red Cell Dist. Width 13.1 % (11.5-14.5)
[2025-03-24 03:34] LABS: Troponin I 0.013 ng/ml
[2025-03-24 04:22] VITALS: BP 120/69
[2025-03-24] MEDS: MAALOX 50 PO (04:39)
[2025-03-24 05:00] VITALS: BP 120/65
[2025-03-24 06:00] VITALS: BP 123/69
[2025-03-24 06:39] LABS: Troponin I < 0.012 ng/ml
[2025-03-24 07:00] VITALS: BP 111/66
== END 2025-03-24 08:55 | disposition home or self-care (01) ==
LOC: EMR 02:40
PROVIDERS: Emergency Medicine; EMERGENCY PHYSICIAN Emergency Medicine; FAMILY PHYSICIAN Internal Medicine
DX: R07.9 Chest pain, unspecified (principal); I45.10 Unspecified right bundle-branch block; I25.10 Atherosclerotic heart disease of native coronary artery without angina pectoris; I10 Essential (primary) hypertension; E78.00 Pure hypercholesterolemia, unspecified; I25.2 Old myocardial infarction; Z87.891 Personal history of nicotine dependence; Z95.1 Presence of aortocoronary bypass graft; Z95.5 Presence of coronary angioplasty implant and graft
CPT/HCPCS: 99285; 71046; 80053; 84484; 85025; 93005; 96361; 96374; 99284

== ENCOUNTER 2025-05-17 21:07 | Emergency (ER) | payer MEDICARE, OTHER, SELFPAY ==
[2025-05-17 21:11] VITALS: BP 126/61
[2025-05-17 21:29] LABS: Hematocrit 38.9 % (39.0-52.0); Hemoglobin 13.7 g/dL (13.0-18.0); Mean Corp Hgb Conc. 35.2 g/dL (33.0-37.0); Mean Corpuscular Volume 87.0 fL (80.0-94.0); Nucleated Red Blood Cells % 0 % (-); Platelet Count 150 10^3/uL (130-400); Red Cell Dist. Width 13.1 % (11.5-14.5)
[2025-05-17 21:58] LABS: ALT (SGPT) 26 U/L (0-50); AST (SGOT) 28 U/L (17-59); Albumin 4.1 g/dl (3.5-5.0); Alkaline Phosphatase 94 U/L (38-126); Blood Urea Nitrogen 28 mg/dl (9-20); Calcium 9.4 mg/dl (8.4-10.2); Carbon Dioxide 21 mmol/L (22-30); Chloride 104 mmol/L (98-107); Glucose 168 mg/dl (70-99); Potassium 4.1 mmol/L (3.5-5.1); Sodium 135 mmol/L (135-145); Total Protein 6.5 g/dl (6.3-8.2); eGFR 55.88
[2025-05-17 22:02] LABS: Troponin I 0.017 ng/ml
[2025-05-17 23:22] VITALS: BP 124/64
[2025-05-18] VITALS: BP 117/64
[2025-05-18 00:05] VITALS: BMI 29.8
[2025-05-18 00:47] LABS: COVID-19 Antigen Negative (Negative)
[2025-05-18 01:05] LABS: Troponin I 0.015 ng/ml
[2025-05-18 01:29] VITALS: BP 134/81
--- NOTE | 2025-05-18 01:53 | ED.GENMED ---
History of Present Illness
General
Chief Complaint: Cardiac Symptoms
Source: patient
Exam Limitations: none
Time Seen by Provider: 05/18/25 01:39
Nursing documentation reviewed up to this point in time: agreed with
History of Present Illness
History of Present Illness:
79-year-old male CAD status post stenting followed by Dr. Piper on Plavix Lasix presents with fatigue shortness of breath started a day or 2 ago worsened tonight felt he may pass out has chronic leg edema no fever or chills no nausea or vomiting, no
cough no chest pain different than his prior angina no history of DVT PE
Past History
Past History
ED Past Medical History: CAD, GERD, HTN, Hypercholesterolemia, [place], Psychiatric and Other (Cellulitis)
ED Past Surgical History: Cardiac (Stents X 3, Coronary artery bypass) and Orthopedic
Social History
Tobacco: Former smoker
Alcohol: Occasional
Drug: None
Personal:
Living: with family
Employment: Employed
Family History
Family History: Early CAD
Phy Exam
Physical Exam
Physical Exam:
Physical Exam
General: no apparent distress, not acutely ill
Neck: No jaundice
Heart: Regular
Lungs: no acute respiratory distress. No crackles
Abdomen: Not tender
Neuro: alert and oriented. no focal neurological deficits
Skin: no rash
Psychiatric: well kept. interactive and cooperative
Extremities: No edema no calf pain
Scores
Heart Score for Chest Pain Patients
STEMI patient?: No
History: Slightly or Non-Suspicious
ECG: Nonspecific Repolarization
Age: >/= 65 years
Risk Factors: >/= 3 Risk Factors or History of CAD
Troponin: </= Normal Limit
Heart Score for Chest Pain Patients: 5
Heart Score Risk: 20.3% MACE over next 6 weeks
Course
Orders/Labs/Results
Orders:
Orders
12/28/25 21:14
Electrocardiogram (*1) Urgent
Reason for Study: Chest Pain
EKG- Treatment ONCE
05/17/25 21:16
Comprehensive Metabolic Panel Urgent
05/17/25 21:17
Complete Blood Count/With Diff Urgent
Troponin I Urgent
05/18/25 00:21
CR Chest - 2 Views Urgent
Comment:
Reason For Exam: respiratory distress
05/18/25 00:23
COVID-19 Antigen Urgent
Source: Nasal Swab
NT-proBNP Urgent
Troponin I Urgent
Influenza A+B Rapid Molecular Urgent
DILSHAD Source: Nasal Swab
Specimen Description:
05/18/25 01:50
CT Chest PE Study Urgent
Comment:
Reason For Exam: sob
Abnormal Lab Results
05/17/25 05/17/25
21:16 21:17
RBC 4.47 L 10^6/uL
(4.70-6.10)
Hct 38.9 L %
(39.0-52.0)
Absolute Lymphs (auto) 0.6 L 10^3/uL
(1.2-3.4)
Absolute Monos (auto) 0.7 H 10^3/uL
(0.1-0.6)
Neutrophils % 78.1 H %
(42.2-75.2)
Lymphocytes % 9.0 L %
(20.5-51.1)
Carbon Dioxide 21 L mmol/L
(22-30)
BUN 28 H mg/dl
(9-20)
Glucose 168 H mg/dl
(70-99)
05/17/25 21:17
05/17/25 21:16
Vital Signs
Initial and Last Documented VS:
Initial Vital Signs
Temp Pulse Resp BP Pulse Ox
98 F 73 16 126/61 97
05/17/25 21:11 05/17/25 21:11 05/17/25 21:11 05/17/25 21:11 05/17/25 21:11
Last Documented Vital Signs
Temp Pulse Resp BP Pulse Ox
98 F 60 16 130/62 95
05/17/25 21:11 05/18/25 04:00 05/18/25 04:00 05/18/25 03:00 05/18/25 04:00
*Pulse Oximetry
SaO2: 94
Oxygen Mode of Delivery: Room air
Patient hypoxic: no
*Critical Care Note
Total Time (30-74mins, 75-104mins- exclusive of procedures): Not Applicable
Update Note
Update Note:
Update 4:[address] chest report reviewed troponins reviewed proBNP reviewed patient has remained hemodynamically stable here
ED Attending Note
-
Portions of this chart may have been created with voice recognition software.� Occasional wrong word or��sound alike� substitutions may have occurred due to the inherent limitations of voice recognition software.
Discharge Plan
Departure
Patient Disposition: Home (Routine Discharge)
Date of Disposition: 05/18/25
Time of Disposition: 04:23
Patient with high blood pressure during this ER visit?: No
Condition: Good
Discharge Problem:
Shortness of breath
Instructions: Shortness of breath in adults - ED (DC), Chest Pain DCA Follow Up
Prescriptions:
No Action
rosuvastatin 20 MG tablet
40 mg PO QPM
ezetimibe [Zetia] 10 MG tablet
10 mg PO QPM
aspirin [Jonathan Chewable Aspirin] 81 MG tablet,chewable
81 mg PO QPM
docosahexaenoic acid-epa 1 CAP capsule
1 cap PO BID
Co Q-10 300 MG capsule
300 mg PO DAILY
carvedilol [Coreg] 3.125 MG tablet
3.125 mg PO BID Qty: 60 0RF
furosemide 20 MG tablet
20 mg PO DAILY Qty: 30 11RF
pramipexole 1 mg Tablet
1 mg PO TIDPRN PRN (Reason: restless leg)
clopidogrel [Plavix] 75 mg Tablet
75 mg PO QPM
terazosin 1 mg Capsule
1 mg PO HS
pantoprazole 40 mg Tablet,Delayed Release (Dr/Ec)
40 mg PO DAILY
oxybutynin chloride 5 mg tablet
5 mg PO BID
valsartan 160 mg tablet
160 mg PO QPM
ccfpsdzwabol-bfkrjybx-ekgqeo Tablet
1 tab PO DAILY
bupropion HCl 150 mg tablet extended release 24 hr
150 mg PO DAILY
Referrals:
Hipolito Salguero MD [Family Provider, Internal Medicine] - Next open appointment
Andry Piper MD [Active, Cardiology] - Next open appointment
Interventions
Interventions:
*General Assessment Last Done: 05/18/25 00:00
*Neglect/Abuse Screening Last Done: 05/17/25 21:11
*ED COVID-19 Vaccine History Last Done: 05/18/25 00:00
*ED Influenza Vaccine History Last Done: 05/18/25 00:00
[facility] Fall Risk Assessment Tool Last Done: 05/18/25 00:00
*Risk Screen - Suicide (C-SSRS) Last Done: 05/17/25 21:11
ED- Pulmonary Assessment Last Done: 05/18/25 00:01
ED- Cardiac Assessment Last Done: 05/18/25 00:01
Discharge Date and Time
Print Language: [id number]
[2025-05-18 02:00] VITALS: BP 135/64
[2025-05-18 03:00] VITALS: BP 130/62
[2025-05-18 04:53] VITALS: BP 155/81
== END 2025-05-18 05:38 | disposition home or self-care (01) ==
LOC: EMR 21:07
PROVIDERS: Emergency Medicine; EMERGENCY PHYSICIAN Emergency Medicine; FAMILY PHYSICIAN Internal Medicine
DX: R06.02 Shortness of breath (principal); R53.83 Other fatigue; E78.00 Pure hypercholesterolemia, unspecified; I10 Essential (primary) hypertension; I25.10 Atherosclerotic heart disease of native coronary artery without angina pectoris; I25.2 Old myocardial infarction; Z79.02 Long term (current) use of antithrombotics/antiplatelets; Z87.891 Personal history of nicotine dependence; Z95.1 Presence of aortocoronary bypass graft; Z95.5 Presence of coronary angioplasty implant and graft; Z11.52 Encounter for screening for COVID-19
CPT/HCPCS: 99285; 71046; 71275; 80053; 83880; 84484; 85025; 87502; 87811; 93005; Q9967